=== PATIENT | male | born 1980 | race African-American/Black ===

== ENCOUNTER 2019-11-07 18:34 | Emergency (ER) | payer MEDICAID ==
[~2019-11-07] VITALS: Ht 180.3 cm; Wt 81.0 kg
[2019-11-07] MEDS ORDERED: HALOPERIDOL LACTATE 5MG/ML VIAL IM STA (18:53)
[2019-11-07] MEDS ORDERED: DIPHENHYDRAMINE 50MG/ML VIAL IM STA (18:53)
[2019-11-07] MEDS ORDERED: LORAZEPAM 2MG/ML CPJ IM STA (18:53)
[2019-11-07] MEDS ORDERED: SODIUM CHLORIDE 0.9% 1,000 ML IV ONE (18:59)
[2019-11-07 19:55] LABS: HEMATOCRIT. 36.4 % (42.0-52.0); HEMOGLOBIN. 12.2 g/dL (14.0-18.0); MEAN CORPUSCULAR VOLUME 83.4 fL (80.0-94.0); MEAN PLATELET VOLUME 7.6 fl (7.4-10.4); PLATELET 213 x1000/uL (130-400); RED BLOOD CELL COUNT 4.37 mill/uL (4.7-6.1)
[2019-11-07 20:00] LABS: CHLORIDE 107 mEq/L (98-107)
[2019-11-07 20:06] LABS: ETHANOL BLOOD < 10 mg/dL
[2019-11-07 20:23] LABS: PLATELET ESTIMATE NORMAL
[2019-11-08 07:09] LABS: CLARITY URINE CLEAR (CLEAR); COLOR URINE YELLOW (YELLOW); KETONES URINE 1+ (NEGATIVE); LEUKOCYTE ESTERASE URINE NEGATIVE (NEGATIVE); NITRITE URINE NEGATIVE (NEGATIVE); OCCULT BLOOD URINE NEGATIVE (NEGATIVE); PH URINE 5.5 (4.5-8.0); PROTEIN URINE NEGATIVE (NEGATIVE); SPECIFIC GRAVITY URINE 1.023 (1.005-1.030)
[2019-11-08 07:19] LABS: *AMPHETAMINES SCREEN URINE PRESUMTIVE POSITIVE (NEGATIVE); *BARBITURATES SCREEN URINE NEGATIVE (NEGATIVE); *BENZODIAZEPINES SCREEN URINE NEGATIVE (NEGATIVE); *COCAINE SCREEN URINE NEGATIVE (NEGATIVE)
[2019-11-08 07:20] LABS: CANNABINOID URINE SCREEN PRESUMTIVE POSITIVE (NEGATIVE); METHADONE URINE SCREEN NEGATIVE (NEGATIVE); OPIATES URINE SCREEN NEGATIVE (NEGATIVE); PHENCYCLIDINE URINE SCREEN NEGATIVE (NEGATIVE)
[2019-11-08 09:30] VITALS: BP 122/68
== END 2019-11-08 09:38 | disposition home or self-care (01) ==
LOC: ER 18:34
DX: R45.850 Homicidal ideations (principal); R07.89 Other chest pain; F16.10 Hallucinogen abuse, uncomplicated; Z98.890 Other specified postprocedural states
CPT/HCPCS: 36415; 71045; 80053; 80305; 80320; 81003; 83880; 84484; 85025; 96360; 96372; 99285; J1200; J1630; J7030; J2060; G0480

== ENCOUNTER 2021-02-03 14:20 | Emergency (ER) | payer MEDICAID ==
[~2021-02-03] VITALS: Ht 177.8 cm; Wt 78.0 kg
[2021-02-03] MEDS ORDERED: LORAZEPAM 2MG/ML CPJ IV STA (15:28)
[2021-02-03] MEDS ORDERED: SODIUM CHLORIDE 0.9% 1,000 ML IV ONE (15:30)
[2021-02-03] MEDS ORDERED: DIPHENHYDRAMINE 50MG/ML VIAL IM STA (16:03)
[2021-02-03] MEDS ORDERED: HALOPERIDOL LACTATE 5MG/ML VIAL IM STA (16:03)
[2021-02-03 18:12] LABS: BASOPHILS % 0.1 % (0.0-2.0); HEMATOCRIT. 38.3 % (42.0-52.0); HEMOGLOBIN. 12.8 g/dL (14.0-18.0); LYMPHOCYTES % 8.3 % (20.0-50.0); MEAN CORPUSCULAR HEMOGLOBIN 27.1 pg (28.0-32.0); MEAN PLATELET VOLUME 7.4 fl (7.4-10.4); MONOCYTES % 9.1 % (2.0-8.0); NEUTROPHILS % 82.5 % (40.0-76.0); PLATELET 274 x1000/uL (130-400); RED BLOOD CELL COUNT 4.73 mill/uL (4.7-6.1); RED CELL DISTRIBUTION WIDTH 15.8 % (11.6-14.6)
[2021-02-03 18:19] LABS: CHLORIDE 106 mEq/L (98-107)
[2021-02-03 18:23] LABS: ETHANOL BLOOD < 10 mg/dL
[2021-02-04 02:04] VITALS: BP 140/92
== END 2021-02-04 02:04 | disposition home or self-care (01) ==
LOC: ER 14:20
DX: R20.2 Paresthesia of skin (principal); M79.661 Pain in right lower leg; F20.9 Schizophrenia, unspecified; R45.1 Restlessness and agitation; Z78.1 Physical restraint status
CPT/HCPCS: 36415; 70450; 80053; 80320; 85025; 93005; 93971; 96361; 96372; 96374; 99285; J1200; J1630; J2060; J7030; Z7610; G0480

== ENCOUNTER 2021-04-12 17:13 | Emergency (ER) | payer MEDICAID ==
[~2021-04-12] VITALS: Ht 177.8 cm; Wt 100.0 kg
[2021-04-12] MEDS ORDERED: DIPHENHYDRAMINE 50MG CAPSULE PO STA (17:33)
[2021-04-12] MEDS ORDERED: SODIUM CHLORIDE 0.9% 1,000 ML IV ONE (17:45)
[2021-04-12 18:15] LABS: BASOPHILS % 0.4 % (0.0-2.0); EOSINOPHILS % 0.1 % (0.0-5.0); HEMATOCRIT. 38.9 % (42.0-52.0); HEMOGLOBIN. 12.7 g/dL (14.0-18.0); MEAN CORPUSCULAR HEMOGLOBIN 26.3 pg (28.0-32.0); MEAN CORPUSCULAR VOLUME 80.8 fL (80.0-94.0); MEAN PLATELET VOLUME 7.5 fl (7.4-10.4); NEUTROPHILS % 79.5 % (40.0-76.0); PLATELET 265 x1000/uL (130-400); RED BLOOD CELL COUNT 4.82 mill/uL (4.7-6.1); RED CELL DISTRIBUTION WIDTH 17.3 % (11.6-14.6)
[2021-04-12 18:22] LABS: CHLORIDE 105 mEq/L (98-107)
[2021-04-12 18:28] LABS: ETHANOL BLOOD < 10 mg/dL
[2021-04-12] MEDS ORDERED: SODIUM CHLORIDE 0.9% 1,000 ML IV NR (20:00)
[2021-04-12 20:52] LABS: CLARITY URINE CLEAR (CLEAR); COLOR URINE YELLOW (YELLOW); KETONES URINE TRACE (NEGATIVE); LEUKOCYTE ESTERASE URINE NEGATIVE (NEGATIVE); NITRITE URINE NEGATIVE (NEGATIVE); OCCULT BLOOD URINE NEGATIVE (NEGATIVE); PH URINE 5.5 (4.5-8.0); PROTEIN URINE TRACE (NEGATIVE); SPECIFIC GRAVITY URINE 1.024 (1.005-1.030); UROBILINOGEN URINE 0.2 E.U./dL (0.2-1.0)
[2021-04-12 21:15] LABS: *AMPHETAMINES SCREEN URINE PRESUMTIVE POSITIVE (NEGATIVE); *BARBITURATES SCREEN URINE NEGATIVE (NEGATIVE)
[2021-04-12] MEDS ORDERED: ACETAMINOPHEN 325MG TABLET PO ONE (21:15)
[2021-04-12 21:16] LABS: *BENZODIAZEPINES SCREEN URINE PRESUMTIVE POSITIVE (NEGATIVE); *COCAINE SCREEN URINE NEGATIVE (NEGATIVE); CANNABINOID URINE SCREEN PRESUMTIVE POSITIVE (NEGATIVE); METHADONE URINE SCREEN NEGATIVE (NEGATIVE); OPIATES URINE SCREEN NEGATIVE (NEGATIVE); PHENCYCLIDINE URINE SCREEN NEGATIVE (NEGATIVE)
[2021-04-12] MEDS ORDERED: MORPHINE SULFATE 4 MG/ML CPJ (NOT FOR IM USE) IV ONE (21:30)
[2021-04-12] MEDS ORDERED: HALOPERIDOL LACTATE 5MG/ML VIAL IM ONE (21:30)
[2021-04-12] MEDS ORDERED: MIDAZOLAM HCL 2 MG/2 ML VIAL IV ONE (21:30)
[2021-04-13 08:00] VITALS: BP 128/82
== END 2021-04-13 08:06 | disposition home or self-care (01) ==
LOC: ER 17:13
DX: F16.10 Hallucinogen abuse, uncomplicated (principal); F15.10 Other stimulant abuse, uncomplicated; F12.10 Cannabis abuse, uncomplicated; F13.90 Sedative, hypnotic, or anxiolytic use, unspecified, uncomplicated; R00.0 Tachycardia, unspecified; F33.9 Major depressive disorder, recurrent, unspecified; Z88.8 Allergy status to other drugs, medicaments and biological substances
CPT/HCPCS: 36415; 70450; 71045; 73552; 80053; 80305; 80307; 80320; 80329; 81003; 84484; 85025; 93005; 93971; 96361; 96372; 96374; 96375; 99291; J1630; J2250; J2270; J7030; Q0163; G0480

== ENCOUNTER 2021-05-06 11:06 | Inpatient (IN) | payer MEDICAID ==
[~2021-05-06] VITALS: Ht 177.8 cm; Wt 79.4 kg
[2021-05-06] MEDS ORDERED: MORPHINE SULFATE 4 MG/ML CPJ (NOT FOR IM USE) IV STA (11:10)
[2021-05-06] MEDS ORDERED: ACETAMINOPHEN 325MG TABLET PO STA (11:10)
[2021-05-06] MEDS ORDERED: SODIUM CHLORIDE 0.9% 1,000 ML IV ONE (11:15)
[2021-05-06] MEDS ORDERED: DIPHENHYDRAMINE 50MG/ML VIAL IV ONE (11:15)
[2021-05-06] MEDS ORDERED: METOCLOPRAMIDE HCL 10MG/2ML VIAL IV ONE (11:15)
[2021-05-06] MEDS ORDERED: OLANZAPINE 10 MG/VIAL IM ONE ×2 (13:30→19:15)
[2021-05-06 15:30] LABS: BASOPHILS % 0.2 % (0.0-2.0); HEMATOCRIT. 39.5 % (42.0-52.0); HEMOGLOBIN. 12.6 g/dL (14.0-18.0); LYMPHOCYTES % 16.1 % (20.0-50.0); MEAN CORPUSCULAR HEMOGLOBIN 26.2 pg (28.0-32.0); MEAN CORPUSCULAR VOLUME 82.3 fL (80.0-94.0); MEAN PLATELET VOLUME 8.2 fl (7.4-10.4); NEUTROPHILS % 75.7 % (40.0-76.0); PLATELET 375 x1000/uL (130-400); RED CELL DISTRIBUTION WIDTH 18.1 % (11.6-14.6)
[2021-05-06 15:37] LABS: CHLORIDE 103 mEq/L (98-107)
[2021-05-06 15:42] LABS: ETHANOL BLOOD < 10 mg/dL
[2021-05-06 15:45] LABS: CLARITY URINE CLOUDY (CLEAR); COLOR URINE YELLOW (YELLOW); KETONES URINE TRACE (NEGATIVE); LEUKOCYTE ESTERASE URINE NEGATIVE (NEGATIVE); NITRITE URINE NEGATIVE (NEGATIVE); OCCULT BLOOD URINE 1+ (NEGATIVE); PH URINE 5.5 (4.5-8.0); PROTEIN URINE 2+ (NEGATIVE); SPECIFIC GRAVITY URINE 1.029 (1.005-1.030)
[2021-05-06 15:46] LABS: CREATINE KINASE 490 IU/L (39-308)
[2021-05-06 15:56] LABS: *AMPHETAMINES SCREEN URINE PRESUMTIVE POSITIVE (NEGATIVE); CANNABINOID URINE SCREEN PRESUMTIVE POSITIVE (NEGATIVE); OPIATES URINE SCREEN NEGATIVE (NEGATIVE); PHENCYCLIDINE URINE SCREEN NEGATIVE (NEGATIVE)
[2021-05-06 15:57] LABS: *BENZODIAZEPINES SCREEN URINE NEGATIVE (NEGATIVE); *COCAINE SCREEN URINE NEGATIVE (NEGATIVE)
[2021-05-06] MEDS ORDERED: SODIUM CHLORIDE 0.9% 1,000 ML IV NR (18:00)
[2021-05-06] MEDS ORDERED: ASPIRIN 325MG EC TABLET PO ONE (19:15)
[2021-05-06] MEDS ORDERED: DIPHENHYDRAMINE 25MG CAPSULE PO ONE (19:15)
[2021-05-06] MEDS ORDERED: MORPHINE SULFATE 4 MG/ML CPJ (NOT FOR IM USE) IV ONE (19:15)
[2021-05-06] MEDS ORDERED: KETOROLAC 15MG/ML VIAL IV PRN (19:45)
[2021-05-06] MEDS ORDERED: ACETAMINOPHEN 325MG TABLET PO PRN (19:45)
[2021-05-06] MEDS ORDERED: MAGNESIUM/ALUMINUM HYDROXIDE/SIMETHICONE 30ML UDC PO PRN (19:45)
[2021-05-06] MEDS ORDERED: DOCUSATE SODIUM 100MG CAPSULE PO PRN (19:45)
[2021-05-06] MEDS ORDERED: CLONIDINE 0.1MG TABLET PO PRN (19:45)
[2021-05-06] MEDS ORDERED: GUAIFENESIN 200MG/10ML SUGAR FREE UDC PO PRN (19:45)
[2021-05-06] MEDS ORDERED: NITROGLYCERIN 0.4MG TABLET SL SL PRN (19:45)
[2021-05-06] MEDS ORDERED: ZOLPIDEM TARTRATE 5MG TABLET PO PRN (19:45)
[2021-05-06] MEDS ORDERED: IPRATROPIUM/ALBUTEROL 0.5-3(2.5)MG/3ML NEB NEB PRN (19:45)
[2021-05-06] MEDS ORDERED: ONDANSETRON HCL 4MG/2ML INJ IV PRN (19:45)
[2021-05-06 21:03] LABS: FOLIC ACID (FOLATE) SERUM > 20.00 ng/mL (>5.38)
[2021-05-06 21:40] LABS: VITAMIN B12 SERUM 1462 pg/mL (211-911)
[2021-05-06] MEDS: FAMOTIDINE 20MG TABLET PO SCH (23:38)
[2021-05-06] MEDS: ENOXAPARIN 40MG/0.4ML SYR SUBCUT SCH (23:38)
[2021-05-07 00:31] LABS: CREATINE KINASE MB FRACTION 44.4 ng/mL (0.5-3.6)
[2021-05-07 02:30] VITALS: BP 141/103
[2021-05-07 04:00] VITALS: BP 159/81
[2021-05-07] MEDS: DILTIAZEM HCL 60MG TABLET PO SCH ×5 (04:10→23:09)
[2021-05-07 06:54] LABS: BASOPHILS % 0.3 % (0.0-2.0); HEMATOCRIT. 37.3 % (42.0-52.0); HEMOGLOBIN. 12.4 g/dL (14.0-18.0); LYMPHOCYTES % 19.2 % (20.0-50.0); MEAN CORPUSCULAR HEMOGLOBIN 26.2 pg (28.0-32.0); MEAN CORPUSCULAR VOLUME 79.3 fL (80.0-94.0); MEAN PLATELET VOLUME 7.6 fl (7.4-10.4); MONOCYTES % 11.6 % (2.0-8.0); NEUTROPHILS % 68.9 % (40.0-76.0); PLATELET 287 x1000/uL (130-400); RED BLOOD CELL COUNT 4.71 mill/uL (4.7-6.1); RED CELL DISTRIBUTION WIDTH 18.4 % (11.6-14.6)
[2021-05-07 07:02] LABS: CHLORIDE 106 mEq/L (98-107)
[2021-05-07 07:18] LABS: PHOSPHORUS 3.7 mg/dL (2.5-4.9)
[2021-05-07 07:22] LABS: CREATINE KINASE MB FRACTION 44.1 ng/mL (0.5-3.6)
[2021-05-07 07:33] LABS: CREATINE KINASE 5269 IU/L (39-308)
[2021-05-07 08:00] VITALS: BP 134/79
[2021-05-07] MEDS: FAMOTIDINE 20MG TABLET PO SCH ×2 (09:18→20:01)
[2021-05-07] MEDS: ASPIRIN 325MG EC TABLET PO SCH (09:18)
[2021-05-07 12:00] VITALS: BP 131/75
[2021-05-07] MEDS: ACETAMINOPHEN 325MG TABLET PO PRN ×2 (15:47→20:01)
[2021-05-07 16:00] VITALS: BP 141/80
[2021-05-07 18:09] LABS: *BARBITURATES SCREEN URINE NEGATIVE (NEGATIVE); METHADONE URINE SCREEN NEGATIVE (NEGATIVE)
[2021-05-07 20:00] VITALS: BP 138/80
[2021-05-07] MEDS: ENOXAPARIN 40MG/0.4ML SYR SUBCUT SCH (20:01)
[2021-05-07] MEDS: LORAZEPAM 0.5MG TABLET PO PRN ×2 (20:21→21:28)
[2021-05-08 00:56] VITALS: BP 124/82
[2021-05-08 04:00] VITALS: BP 133/89
[2021-05-08] MEDS: DILTIAZEM HCL 60MG TABLET PO SCH (05:01)
[2021-05-08 08:00] VITALS: BP 146/99
[2021-05-08] MEDS: ASPIRIN 325MG EC TABLET PO SCH (09:37)
[2021-05-08] MEDS: FAMOTIDINE 20MG TABLET PO SCH (09:37)
[2021-05-08 10:58] VITALS: BP 143/92
== END 2021-05-08 11:52 | disposition home or self-care (01) | DRG 812 ==
LOC: ER 11:06 → 7EST 19:25 → ENRESERV 23:17 → 5WST 05-07 08:35
PROVIDERS: ADMIT Internal Medicine; ATTEND Internal Medicine
DX: T43.621A Poisoning by amphetamines, accidental (unintentional), initial encounter (principal); N17.0 Acute kidney failure with tubular necrosis; I21.4 Non-ST elevation (NSTEMI) myocardial infarction; M62.82 Rhabdomyolysis; I47.1 Supraventricular tachycardia; F15.10 Other stimulant abuse, uncomplicated; F17.210 Nicotine dependence, cigarettes, uncomplicated; Z20.822 Contact with and (suspected) exposure to COVID-19; F41.9 Anxiety disorder, unspecified; I10 Essential (primary) hypertension; J45.909 Unspecified asthma, uncomplicated; Z82.49 Family history of ischemic heart disease and other diseases of the circulatory system; Y92.89 Other specified places as the place of occurrence of the external cause; Z56.0 Unemployment, unspecified; F19.10 Other psychoactive substance abuse, uncomplicated
CPT/HCPCS: 36415; 71045; 71275; 80053; 80061; 80305; 80307; 80320; 80329; 81003; 82550; 82553; 82607; 82746; 82962; 83036; 83540; 83550; 83735; 83880; 84100; 84484; 85025; 93970; 99291; J1200; J1650; J1885; J2270; J2765; J3490; J7030; Q0163; Q9967; U0003; U0005; G0480

== ENCOUNTER 2021-05-09 12:48 | Emergency (ER) | payer MEDICAID ==
[~2021-05-09] VITALS: Ht 177.8 cm; Wt 80.0 kg
[2021-05-09 14:15] LABS: HEMATOCRIT. 35.9 % (42.0-52.0); HEMOGLOBIN. 11.7 g/dL (14.0-18.0); MEAN CORPUSCULAR HEMOGLOBIN 26.1 pg (28.0-32.0); MEAN CORPUSCULAR VOLUME 80.2 fL (80.0-94.0); MEAN PLATELET VOLUME 7.4 fl (7.4-10.4); PLATELET 226 x1000/uL (130-400); RED BLOOD CELL COUNT 4.48 mill/uL (4.7-6.1); RED CELL DISTRIBUTION WIDTH 18.8 % (11.6-14.6)
[2021-05-09 14:20] LABS: CHLORIDE 100 mEq/L (98-107)
[2021-05-09 14:24] LABS: ETHANOL BLOOD < 10 mg/dL
[2021-05-09] MEDS ORDERED: DIPHENHYDRAMINE 50MG/ML VIAL IV ONE ×2 (14:30→15:45)
[2021-05-09] MEDS ORDERED: OLANZAPINE 10 MG/VIAL IM ONE (15:45)
[2021-05-09] MEDS ORDERED: SODIUM CHLORIDE 0.9% 1,000 ML IV ONE ×2 (16:00→18:45)
[2021-05-09] MEDS ORDERED: LORAZEPAM 1MG TABLET PO ONE (16:00)
[2021-05-09 17:20] LABS: PLATELET ESTIMATE NORMAL
[2021-05-10 09:16] VITALS: BP 110/64
[2021-05-11] MEDS ORDERED: IBUP-2028 MT (17:40)
== END 2021-05-10 10:03 | disposition home or self-care (01) ==
LOC: ER 12:51
DX: F29 Unspecified psychosis not due to a substance or known physiological condition (principal); R07.89 Other chest pain; R00.2 Palpitations; J45.909 Unspecified asthma, uncomplicated; I10 Essential (primary) hypertension; F15.10 Other stimulant abuse, uncomplicated
CPT/HCPCS: 36415; 71045; 80053; 80320; 83690; 83880; 84484; 85025; 93005; 96361; 96372; 96374; 96376; 99285; A4217; J1200; J3490; J7030; G0480

== ENCOUNTER 2021-05-11 11:58 | Emergency (ER) | payer MEDICAID ==
[~2021-05-11] VITALS: Ht 177.8 cm; Wt 79.0 kg
[2021-05-11] MEDS ORDERED: KETOROLAC 30MG/ML VIAL IV STA (12:25)
[2021-05-11] MEDS ORDERED: SODIUM CHLORIDE 0.9% 1,000 ML IV ONE (12:30)
[2021-05-11] MEDS ORDERED: DIPHENHYDRAMINE 25MG CAPSULE PO ONE (12:30)
[2021-05-11 12:50] LABS: HEMATOCRIT. 30.6 % (42.0-52.0); HEMOGLOBIN. 10.7 g/dL (14.0-18.0); MEAN CORPUSCULAR HEMOGLOBIN 27.7 pg (28.0-32.0); MEAN CORPUSCULAR VOLUME 79.2 fL (80.0-94.0); MEAN PLATELET VOLUME 7.3 fl (7.4-10.4); PLATELET 201 x1000/uL (130-400); RED BLOOD CELL COUNT 3.87 mill/uL (4.7-6.1); RED CELL DISTRIBUTION WIDTH 18.9 % (11.6-14.6)
[2021-05-11 13:03] LABS: CHLORIDE 103 mEq/L (98-107)
[2021-05-11 13:54] LABS: PLATELET ESTIMATE NORMAL
[2021-05-11] MEDS ORDERED: ACETAMINOPHEN 325MG TABLET PO NR (14:15)
[2021-05-11] MEDS ORDERED: IBUP-2028 MT (17:40)
[2021-05-11 18:02] VITALS: BP 121/74
== END 2021-05-11 18:40 | disposition home or self-care (01) ==
LOC: ER 11:58
DX: R07.89 Other chest pain (principal); I10 Essential (primary) hypertension; Z88.8 Allergy status to other drugs, medicaments and biological substances; Z98.890 Other specified postprocedural states
CPT/HCPCS: 36415; 71045; 80053; 84484; 85025; 93005; 93970; 96361; 96374; 99285; J1885; J7030; Q0163

== ENCOUNTER 2021-06-07 20:06 | Emergency (ER) | payer MEDICAID ==
[~2021-06-07] VITALS: Ht 182.9 cm; Wt 80.0 kg
[~2021-06-07 20:06] MED LIST: IBUP-2028 MT
[2021-06-07 20:33] VITALS: BP 124/76
[2021-06-07] MEDS ORDERED: LORAZEPAM 1MG TABLET PO ONE (21:45)
[2021-06-07] MEDS ORDERED: OLANZAPINE 5MG TABLET ODT PO ONE (22:00)
[2021-06-07] MEDS ORDERED: DIPHENHYDRAMINE 50MG/ML VIAL IM PRN (22:00)
[2021-06-07 23:12] LABS: *AMPHETAMINES SCREEN URINE PRESUMTIVE POSITIVE (NEGATIVE); *BARBITURATES SCREEN URINE NEGATIVE (NEGATIVE); *BENZODIAZEPINES SCREEN URINE PRESUMTIVE POSITIVE (NEGATIVE); *COCAINE SCREEN URINE NEGATIVE (NEGATIVE); METHADONE URINE SCREEN NEGATIVE (NEGATIVE); OPIATES URINE SCREEN NEGATIVE (NEGATIVE)
[2021-06-07 23:13] LABS: CANNABINOID URINE SCREEN NEGATIVE (NEGATIVE); PHENCYCLIDINE URINE SCREEN NEGATIVE (NEGATIVE)
== END 2021-06-07 23:38 | disposition home or self-care (01) ==
LOC: ER 20:06
DX: F41.8 Other specified anxiety disorders (principal); R07.89 Other chest pain; R00.0 Tachycardia, unspecified; F15.10 Other stimulant abuse, uncomplicated; F16.10 Hallucinogen abuse, uncomplicated; I10 Essential (primary) hypertension; J45.909 Unspecified asthma, uncomplicated
CPT/HCPCS: 80305; 93005; 96372; 99284; J1200; Z7610

== ENCOUNTER 2021-06-09 13:25 | Emergency (ER) | payer MEDICAID ==
[~2021-06-09] VITALS: Ht 177.8 cm; Wt 80.0 kg
[2021-06-09 13:29] VITALS: BP 136/88
== END 2021-06-09 14:34 | disposition left against medical advice (07) ==
LOC: ER 13:25
DX: Z53.21 Procedure and treatment not carried out due to patient leaving prior to being seen by health care provider (principal); R07.9 Chest pain, unspecified; R00.0 Tachycardia, unspecified
CPT/HCPCS: 93005

== ENCOUNTER 2021-06-09 18:51 | Emergency (ER) | payer MEDICAID ==
[~2021-06-09] VITALS: Ht 175.3 cm; Wt 77.0 kg
[2021-06-09] MEDS ORDERED: OLANZAPINE 10 MG/VIAL IM ONE (19:15)
[2021-06-09] MEDS ORDERED: LORAZEPAM 2MG/ML CPJ IM ONE (19:15)
[2021-06-09 20:42] LABS: BASOPHILS % 0.6 % (0.0-2.0); EOSINOPHILS % 0.1 % (0.0-5.0); HEMATOCRIT. 38.7 % (42.0-52.0); LYMPHOCYTES % 17.6 % (20.0-50.0); MEAN CORPUSCULAR HEMOGLOBIN 26.5 pg (28.0-32.0); MEAN CORPUSCULAR VOLUME 78.8 fL (80.0-94.0); MEAN PLATELET VOLUME 7.2 fl (7.4-10.4); MONOCYTES % 9.9 % (2.0-8.0); NEUTROPHILS % 71.8 % (40.0-76.0); PLATELET 203 x1000/uL (130-400); RED CELL DISTRIBUTION WIDTH 19.1 % (11.6-14.6)
[2021-06-09 20:47] LABS: CHLORIDE 105 mEq/L (98-107)
[2021-06-09 20:52] LABS: ETHANOL BLOOD < 10 mg/dL
[2021-06-09 21:42] LABS: CLARITY URINE CLEAR (CLEAR); COLOR URINE YELLOW (YELLOW); KETONES URINE 1+ (NEGATIVE); LEUKOCYTE ESTERASE URINE NEGATIVE (NEGATIVE); NITRITE URINE NEGATIVE (NEGATIVE); OCCULT BLOOD URINE NEGATIVE (NEGATIVE); PH URINE 5.5 (4.5-8.0); PROTEIN URINE 1+ (NEGATIVE); SPECIFIC GRAVITY URINE 1.033 (1.005-1.030)
[2021-06-09 22:11] LABS: *AMPHETAMINES SCREEN URINE PRESUMTIVE POSITIVE (NEGATIVE); *BARBITURATES SCREEN URINE NEGATIVE (NEGATIVE); *BENZODIAZEPINES SCREEN URINE PRESUMTIVE POSITIVE (NEGATIVE)
[2021-06-09 22:12] LABS: *COCAINE SCREEN URINE NEGATIVE (NEGATIVE); CANNABINOID URINE SCREEN NEGATIVE (NEGATIVE); METHADONE URINE SCREEN NEGATIVE (NEGATIVE); OPIATES URINE SCREEN NEGATIVE (NEGATIVE); PHENCYCLIDINE URINE SCREEN NEGATIVE (NEGATIVE)
[2021-06-10 10:55] VITALS: BP 131/89
== END 2021-06-10 11:14 | disposition home or self-care (01) ==
LOC: ER 18:51
DX: F15.129 Other stimulant abuse with intoxication, unspecified (principal); F16.129 Hallucinogen abuse with intoxication, unspecified; R45.6 Violent behavior; F13.10 Sedative, hypnotic or anxiolytic abuse, uncomplicated; F14.10 Cocaine abuse, uncomplicated; D64.9 Anemia, unspecified; D72.819 Decreased white blood cell count, unspecified; R03.0 Elevated blood-pressure reading, without diagnosis of hypertension; R73.9 Hyperglycemia, unspecified
CPT/HCPCS: 36415; 80053; 80305; 80307; 80320; 80329; 81003; 85025; 96372; 99285; J2060; J3490; Z7610; G0480

== ENCOUNTER 2021-10-19 06:45 | Emergency (ER) | payer MEDICAID ==
[~2021-10-19] VITALS: Ht 177.8 cm; Wt 67.4 kg
[2021-10-19 06:58] VITALS: BP 139/89
[2021-10-19 09:45] LABS: BASOPHILS % 0.8 % (0.0-2.0); EOSINOPHILS % 0.2 % (0.0-5.0); HEMATOCRIT. 37.1 % (42.0-52.0); HEMOGLOBIN. 12.1 g/dL (14.0-18.0); LYMPHOCYTES % 23.3 % (20.0-50.0); MEAN CORPUSCULAR HEMOGLOBIN 26.2 pg (28.0-32.0); MEAN CORPUSCULAR VOLUME 80.2 fL (80.0-94.0); MEAN PLATELET VOLUME 6.7 fl (7.4-10.4); MONOCYTES % 14.1 % (2.0-8.0); NEUTROPHILS % 61.6 % (40.0-76.0); PLATELET 300 x1000/uL (130-400); RED BLOOD CELL COUNT 4.62 mill/uL (4.7-6.1)
[2021-10-19 09:55] LABS: CHLORIDE 103 mEq/L (98-107)
[2021-10-19 10:00] LABS: ETHANOL BLOOD < 10 mg/dL
== END 2021-10-19 14:46 | disposition home or self-care (01) ==
LOC: ER 06:45
DX: Z13.9 Encounter for screening, unspecified (principal)
CPT/HCPCS: 36415; 80053; 80307; 80320; 80329; 85025; 99283; G0480

== ENCOUNTER 2021-11-22 19:21 | Emergency (ER) | payer MEDICAID ==
[~2021-11-22] VITALS: Ht 180.3 cm; Wt 95.0 kg
[2021-11-22 21:23] LABS: HEMATOCRIT. 37.1 % (42.0-52.0); HEMOGLOBIN. 11.9 g/dL (14.0-18.0); MEAN CORPUSCULAR HEMOGLOBIN 25.8 pg (28.0-32.0); MEAN CORPUSCULAR VOLUME 80.5 fL (80.0-94.0); MEAN PLATELET VOLUME 7.1 fl (7.4-10.4); PLATELET 271 x1000/uL (130-400)
[2021-11-22] MEDS ORDERED: MIDAZOLAM HCL 2 MG/2 ML VIAL IM ONE (21:30)
[2021-11-22] MEDS ORDERED: OLANZAPINE 10 MG/VIAL IM ONE (21:30)
[2021-11-22] MEDS ORDERED: DIPHENHYDRAMINE 50MG/ML VIAL IM ONE (21:30)
[2021-11-22 21:33] LABS: CHLORIDE 112 mEq/L (98-107)
[2021-11-22 21:40] LABS: ETHANOL BLOOD < 10 mg/dL
[2021-11-22 22:15] LABS: PLATELET ESTIMATE NORMAL
[2021-11-23] MEDS ORDERED: OLANZAPINE 10 MG/VIAL IM ONE (01:15)
[2021-11-23] MEDS ORDERED: MIDAZOLAM HCL 2 MG/2 ML VIAL IM ONE (01:15)
[2021-11-23 01:20] VITALS: BP 138/74
== END 2021-11-22 20:52 | disposition home or self-care (01) ==
LOC: ER 19:21
DX: R45.1 Restlessness and agitation (principal); R07.89 Other chest pain; F41.9 Anxiety disorder, unspecified; F15.90 Other stimulant use, unspecified, uncomplicated; F91.8 Other conduct disorders
CPT/HCPCS: 36415; 80053; 80320; 83880; 84484; 85025; 96372; 99284; J1200; J2250; J3490; G0480

== ENCOUNTER 2021-11-24 06:11 | Emergency (ER) | payer MEDICAID ==
[~2021-11-24] VITALS: Ht 177.8 cm; Wt 77.0 kg
[2021-11-24 09:18] LABS: BASOPHILS % 0.3 % (0.0-2.0); HEMATOCRIT. 36.8 % (42.0-52.0); HEMOGLOBIN. 11.7 g/dL (14.0-18.0); LYMPHOCYTES % 7.8 % (20.0-50.0); MEAN CORPUSCULAR HEMOGLOBIN 25.4 pg (28.0-32.0); MEAN CORPUSCULAR VOLUME 80.1 fL (80.0-94.0); MEAN PLATELET VOLUME 7.1 fl (7.4-10.4); MONOCYTES % 7.6 % (2.0-8.0); NEUTROPHILS % 84.3 % (40.0-76.0); PLATELET 285 x1000/uL (130-400); RED CELL DISTRIBUTION WIDTH 17.2 % (11.6-14.6)
[2021-11-24 09:33] LABS: CHLORIDE 110 mEq/L (98-107)
[2021-11-24] MEDS ORDERED: LORAZEPAM 2MG/ML CPJ IM ONE (11:15)
[2021-11-24] MEDS ORDERED: DIPHENHYDRAMINE 50MG/ML VIAL IM ONE (11:15)
[2021-11-24 14:30] VITALS: BP 118/69
== END 2021-11-24 17:30 | disposition home or self-care (01) ==
LOC: ER 06:17
DX: T43.621A Poisoning by amphetamines, accidental (unintentional), initial encounter (principal); F15.929 Other stimulant use, unspecified with intoxication, unspecified; R00.0 Tachycardia, unspecified; R07.89 Other chest pain; Y92.89 Other specified places as the place of occurrence of the external cause
CPT/HCPCS: 36415; 71045; 80053; 83880; 84484; 85025; 93005; 96372; 99285; J1200; J2060

== ENCOUNTER 2021-12-07 14:27 | Emergency (ER) | payer MEDICAID ==
[~2021-12-07] VITALS: Ht 177.8 cm; Wt 82.0 kg
[2021-12-07 15:00] VITALS: BP 132/69
[2021-12-07] MEDS ORDERED: DIPHENHYDRAMINE 50MG CAPSULE PO ONE (15:00)
== END 2021-12-07 16:10 | disposition home or self-care (01) ==
LOC: ER 14:27
DX: R07.89 Other chest pain (principal); F15.10 Other stimulant abuse, uncomplicated; Z88.8 Allergy status to other drugs, medicaments and biological substances; Z98.890 Other specified postprocedural states
CPT/HCPCS: 71045; 93005; 99283; Q0163

== ENCOUNTER 2021-12-07 16:51 | Emergency (ER) | payer MEDICAID ==
[~2021-12-07] VITALS: Ht 182.9 cm; Wt 92.0 kg
[2021-12-07] MEDS ORDERED: DIPHENHYDRAMINE 50MG/ML VIAL IV ONE (17:30)
[2021-12-07] MEDS ORDERED: MIDAZOLAM HCL 2 MG/2 ML VIAL IV ONE (17:30)
[2021-12-07] MEDS ORDERED: SODIUM CHLORIDE 0.9% 1,000 ML IV ONE (17:30)
[2021-12-07 17:36] LABS: BASOPHILS % 0.7 % (0.0-2.0); EOSINOPHILS % 0.2 % (0.0-5.0); HEMATOCRIT. 34.4 % (42.0-52.0); HEMOGLOBIN. 11.4 g/dL (14.0-18.0); LYMPHOCYTES % 22.8 % (20.0-50.0); MEAN CORPUSCULAR HEMOGLOBIN 26.3 pg (28.0-32.0); MEAN CORPUSCULAR VOLUME 79.2 fL (80.0-94.0); MEAN PLATELET VOLUME 7.6 fl (7.4-10.4); MONOCYTES % 8.1 % (2.0-8.0); NEUTROPHILS % 68.2 % (40.0-76.0); PLATELET 240 x1000/uL (130-400); RED BLOOD CELL COUNT 4.35 mill/uL (4.7-6.1); RED CELL DISTRIBUTION WIDTH 17.8 % (11.6-14.6)
[2021-12-07 17:39] LABS: CHLORIDE 107 mEq/L (98-107)
[2021-12-07 17:54] LABS: ETHANOL BLOOD < 10 mg/dL
[2021-12-07 18:08] VITALS: BP 152/77
== END 2021-12-07 20:44 | disposition home or self-care (01) ==
LOC: ER 16:51
DX: F15.90 Other stimulant use, unspecified, uncomplicated (principal); Z98.890 Other specified postprocedural states; Z88.8 Allergy status to other drugs, medicaments and biological substances
CPT/HCPCS: 36415; 80053; 80307; 80320; 80329; 84443; 85025; 96374; 96375; 99284; J1200; J2250; J7030; G0480

== ENCOUNTER 2021-12-07 21:15 | Emergency (ER) | payer MEDICAID ==
[~2021-12-07] VITALS: Ht 177.8 cm; Wt 82.0 kg
[2021-12-08 07:04] LABS: BASOPHILS % 0.6 % (0.0-2.0); EOSINOPHILS % 0.2 % (0.0-5.0); HEMOGLOBIN. 11.6 g/dL (14.0-18.0); LYMPHOCYTES % 20.6 % (20.0-50.0); MEAN CORPUSCULAR HEMOGLOBIN 25.8 pg (28.0-32.0); MEAN CORPUSCULAR VOLUME 80.3 fL (80.0-94.0); MEAN PLATELET VOLUME 7.3 fl (7.4-10.4); MONOCYTES % 9.1 % (2.0-8.0); NEUTROPHILS % 69.5 % (40.0-76.0); PLATELET 271 x1000/uL (130-400); RED BLOOD CELL COUNT 4.49 mill/uL (4.7-6.1); RED CELL DISTRIBUTION WIDTH 17.6 % (11.6-14.6)
[2021-12-08 07:23] LABS: CLARITY URINE CLEAR (CLEAR); COLOR URINE YELLOW (YELLOW); KETONES URINE NEGATIVE (NEGATIVE); LEUKOCYTE ESTERASE URINE NEGATIVE (NEGATIVE); NITRITE URINE NEGATIVE (NEGATIVE); OCCULT BLOOD URINE NEGATIVE (NEGATIVE); PROTEIN URINE TRACE (NEGATIVE); SPECIFIC GRAVITY URINE 1.018 (1.005-1.030); UROBILINOGEN URINE 0.2 E.U./dL (0.2-1.0)
[2021-12-08 07:37] LABS: *AMPHETAMINES SCREEN URINE PRESUMTIVE POSITIVE (NEGATIVE); *BARBITURATES SCREEN URINE NEGATIVE (NEGATIVE); *BENZODIAZEPINES SCREEN URINE PRESUMTIVE POSITIVE (NEGATIVE); *COCAINE SCREEN URINE NEGATIVE (NEGATIVE); CANNABINOID URINE SCREEN PRESUMTIVE POSITIVE (NEGATIVE); METHADONE URINE SCREEN NEGATIVE (NEGATIVE); OPIATES URINE SCREEN NEGATIVE (NEGATIVE); PHENCYCLIDINE URINE SCREEN NEGATIVE (NEGATIVE)
[2021-12-08 09:04] LABS: CHLORIDE 103 mEq/L (98-107)
[2021-12-08 09:12] LABS: ETHANOL BLOOD < 10 mg/dL
[2021-12-08] MEDS ORDERED: OLANZAPINE 5MG TABLET PO SCH (11:15)
[2021-12-08] MEDS: OLANZAPINE 5MG TABLET PO SCH ×2 (13:26→13:33)
[2021-12-09] MEDS: OLANZAPINE 5MG TABLET PO SCH (17:00)
[2021-12-09 18:46] VITALS: BP 136/88
== END 2021-12-09 19:04 ==
LOC: ER 21:15
DX: F20.1 Disorganized schizophrenia (principal); R45.850 Homicidal ideations; F15.151 Other stimulant abuse with stimulant-induced psychotic disorder with hallucinations; F12.151 Cannabis abuse with psychotic disorder with hallucinations; F13.151 Sedative, hypnotic or anxiolytic abuse with sedative, hypnotic or anxiolytic-induced psychotic disorder with hallucinations; R45.1 Restlessness and agitation; R00.0 Tachycardia, unspecified; R94.31 Abnormal electrocardiogram [ECG] [EKG]; Z20.822 Contact with and (suspected) exposure to COVID-19; F34.1 Dysthymic disorder; Z75.1 Person awaiting admission to adequate facility elsewhere
CPT/HCPCS: 36415; 80053; 80305; 80320; 81001; 85025; 93005; 99283; C9803; U0003; U0005; G0480

== ENCOUNTER 2022-01-11 23:36 | Emergency (ER) | payer MEDICAID ==
[~2022-01-11] VITALS: Ht 180.3 cm; Wt 84.0 kg
[2022-01-12] MEDS ORDERED: LORAZEPAM 1MG TABLET PO ONE (00:15)
[2022-01-12] MEDS ORDERED: ASPIRIN 325MG EC TABLET PO ONE (00:15)
[2022-01-12 00:39] LABS: CHLORIDE 105 mEq/L (98-107)
[2022-01-12 00:46] LABS: ETHANOL BLOOD < 10 mg/dL
[2022-01-12 01:02] LABS: BASOPHILS % 0.2 % (0.0-2.0); HEMATOCRIT. 36.7 % (42.0-52.0); HEMOGLOBIN. 11.8 g/dL (14.0-18.0); LYMPHOCYTES % 8.7 % (20.0-50.0); MEAN CORPUSCULAR HEMOGLOBIN 25.1 pg (28.0-32.0); MEAN PLATELET VOLUME 7.3 fl (7.4-10.4); MONOCYTES % 4.1 % (2.0-8.0); PLATELET 273 x1000/uL (130-400); RED BLOOD CELL COUNT 4.71 mill/uL (4.7-6.1); RED CELL DISTRIBUTION WIDTH 17.7 % (11.6-14.6)
[2022-01-12 03:27] VITALS: BP 128/72
== END 2022-01-12 09:52 | disposition home or self-care (01) ==
LOC: ER 23:46
DX: F20.0 Paranoid schizophrenia (principal); R51.9 Headache, unspecified; R07.89 Other chest pain; M79.18 Myalgia, other site
CPT/HCPCS: 36415; 80053; 80307; 80320; 80329; 84484; 85025; 99283; G0480

== ENCOUNTER 2022-02-10 13:56 | Emergency (ER) | payer MEDICAID ==
[~2022-02-10] VITALS: Ht 177.8 cm; Wt 82.0 kg
[2022-02-10 15:48] LABS: BASOPHILS % 0.3 % (0.0-2.0); EOSINOPHILS % 0.7 % (0.0-5.0); HEMATOCRIT. 37.5 % (42.0-52.0); HEMOGLOBIN. 12.2 g/dL (14.0-18.0); LYMPHOCYTES % 32.1 % (20.0-50.0); MEAN CORPUSCULAR HEMOGLOBIN 25.2 pg (28.0-32.0); MEAN CORPUSCULAR VOLUME 77.4 fL (80.0-94.0); MEAN PLATELET VOLUME 7.1 fl (7.4-10.4); NEUTROPHILS % 57.9 % (40.0-76.0); PLATELET 288 x1000/uL (130-400); RED BLOOD CELL COUNT 4.85 mill/uL (4.7-6.1); RED CELL DISTRIBUTION WIDTH 17.8 % (11.6-14.6)
[2022-02-10 16:11] LABS: CHLORIDE 109 mEq/L (98-107)
[2022-02-10 16:21] LABS: ETHANOL BLOOD 39 mg/dL
[2022-02-10] MEDS ORDERED: IBUPROFEN 600MG TABLET PO ONE (19:15)
[2022-02-10 21:38] VITALS: BP 124/64
== END 2022-02-10 21:42 | disposition home or self-care (01) ==
LOC: ER 13:56
DX: R07.89 Other chest pain (principal); R10.13 Epigastric pain; R00.0 Tachycardia, unspecified
CPT/HCPCS: 36415; 71045; 80053; 80320; 84484; 85025; 93005; 99285; G0480

== ENCOUNTER 2022-02-11 03:28 | Emergency (ER) | payer MEDICAID ==
[~2022-02-11] VITALS: Ht 175.3 cm; Wt 82.0 kg
[2022-02-11 03:34] VITALS: BP 132/78
== END 2022-02-11 04:02 | disposition home or self-care (01) ==
LOC: ER 03:35
DX: R07.89 Other chest pain (principal); F15.90 Other stimulant use, unspecified, uncomplicated; Z88.8 Allergy status to other drugs, medicaments and biological substances; Z98.890 Other specified postprocedural states
CPT/HCPCS: 93005; 99283

== ENCOUNTER 2022-04-26 17:40 | Emergency (ER) | payer MEDICAID ==
[~2022-04-26] VITALS: Ht 170.2 cm; Wt 109.0 kg
[2022-04-26] MEDS ORDERED: LORAZEPAM 1MG TABLET PO ONE (19:00)
[2022-04-26 19:13] LABS: BASOPHILS % 0.1 % (0.0-2.0); HEMOGLOBIN. 12.2 g/dL (14.0-18.0); MEAN CORPUSCULAR HEMOGLOBIN 25.2 pg (28.0-32.0); MEAN CORPUSCULAR VOLUME 78.2 fL (80.0-94.0); MEAN PLATELET VOLUME 7.4 fl (7.4-10.4); NEUTROPHILS % 85.9 % (40.0-76.0); PLATELET 342 x1000/uL (130-400); RED BLOOD CELL COUNT 4.85 mill/uL (4.7-6.1); RED CELL DISTRIBUTION WIDTH 18.4 % (11.6-14.6)
[2022-04-26 19:21] LABS: CHLORIDE 105 mEq/L (98-107)
[2022-04-26 19:27] LABS: ETHANOL BLOOD 43 mg/dL
[2022-04-26] MEDS ORDERED: OLANZAPINE 10 MG/VIAL IM ONE (20:15)
[2022-04-26] MEDS ORDERED: HALOPERIDOL LACTATE 5MG/ML VIAL IM ONE (20:15)
[2022-04-26] MEDS ORDERED: LORAZEPAM 2MG/ML CPJ IM ONE (20:15)
[2022-04-26 20:48] LABS: CLARITY URINE CLOUDY (CLEAR); COLOR URINE YELLOW (YELLOW); KETONES URINE 1+ (NEGATIVE); LEUKOCYTE ESTERASE URINE NEGATIVE (NEGATIVE); NITRITE URINE NEGATIVE (NEGATIVE); OCCULT BLOOD URINE TRACE (NEGATIVE); PH URINE 6.5 (4.5-8.0); PROTEIN URINE 3+ (NEGATIVE); SPECIFIC GRAVITY URINE 1.025 (1.005-1.030)
[2022-04-26 20:58] LABS: *AMPHETAMINES SCREEN URINE PRESUMTIVE POSITIVE (NEGATIVE); *BARBITURATES SCREEN URINE NEGATIVE (NEGATIVE); *BENZODIAZEPINES SCREEN URINE PRESUMTIVE POSITIVE (NEGATIVE); *COCAINE SCREEN URINE NEGATIVE (NEGATIVE); CANNABINOID URINE SCREEN NEGATIVE (NEGATIVE); METHADONE URINE SCREEN NEGATIVE (NEGATIVE); OPIATES URINE SCREEN NEGATIVE (NEGATIVE); PHENCYCLIDINE URINE SCREEN NEGATIVE (NEGATIVE)
[2022-04-27 00:15] VITALS: BP 133/74
[2022-04-27] MEDS ORDERED: AMLO2.5T45 MT (20:14)
== END 2022-04-27 00:15 | disposition home or self-care (01) ==
LOC: ER 17:57
DX: R07.89 Other chest pain (principal); F20.9 Schizophrenia, unspecified; T43.621A Poisoning by amphetamines, accidental (unintentional), initial encounter; Y92.89 Other specified places as the place of occurrence of the external cause
CPT/HCPCS: 36415; 80053; 80305; 80307; 80320; 80329; 81003; 83690; 84484; 85025; 93005; 96372; 99284; J1630; J2060; Z7610; G0480

== ENCOUNTER 2022-04-27 17:47 | Emergency (ER) | payer MEDICAID ==
[~2022-04-27] VITALS: Ht 175.3 cm; Wt 91.0 kg
[2022-04-27] MEDS ORDERED: LORAZEPAM 1MG TABLET PO ONE (19:00)
[2022-04-27] MEDS ORDERED: DIPHENHYDRAMINE 25MG CAPSULE PO ONE (19:00)
[2022-04-27 19:22] LABS: BASOPHILS % 0.2 % (0.0-2.0); HEMATOCRIT. 36.8 % (42.0-52.0); LYMPHOCYTES % 8.9 % (20.0-50.0); MEAN CORPUSCULAR HEMOGLOBIN 25.1 pg (28.0-32.0); MEAN PLATELET VOLUME 7.2 fl (7.4-10.4); MONOCYTES % 6.1 % (2.0-8.0); NEUTROPHILS % 84.8 % (40.0-76.0); PLATELET 321 x1000/uL (130-400); RED BLOOD CELL COUNT 4.78 mill/uL (4.7-6.1); RED CELL DISTRIBUTION WIDTH 19.2 % (11.6-14.6)
[2022-04-27 19:23] LABS: CHLORIDE 106 mEq/L (98-107)
[2022-04-27 19:31] LABS: ETHANOL BLOOD < 10 mg/dL
[2022-04-27] MEDS ORDERED: AMLO2.5T45 MT (20:14)
[2022-04-27] MEDS ORDERED: AMLODIPINE 2.5MG TABLET PO ONE (20:15)
[2022-04-27 20:54] VITALS: BP 119/63
== END 2022-04-27 21:00 | disposition home or self-care (01) ==
LOC: ER 17:47
DX: I10 Essential (primary) hypertension (principal); R07.89 Other chest pain; F15.10 Other stimulant abuse, uncomplicated
CPT/HCPCS: 36415; 80053; 80307; 80320; 80329; 85025; 99283; G0480

== ENCOUNTER 2022-04-28 19:15 | Emergency (ER) | payer MEDICAID ==
[~2022-04-28] VITALS: Ht 172.7 cm; Wt 70.0 kg
[~2022-04-28 19:15] MED LIST changes: +AMLO2.5T45 MT
[2022-04-28] MEDS ORDERED: DIPHENHYDRAMINE 50MG/ML VIAL IM STA (20:48)
[2022-04-28 21:38] LABS: BASOPHILS % 0.4 % (0.0-2.0); HEMATOCRIT. 35.6 % (42.0-52.0); HEMOGLOBIN. 11.5 g/dL (14.0-18.0); LYMPHOCYTES % 18.2 % (20.0-50.0); MEAN CORPUSCULAR HEMOGLOBIN 25.1 pg (28.0-32.0); MEAN CORPUSCULAR VOLUME 77.5 fL (80.0-94.0); MEAN PLATELET VOLUME 7.1 fl (7.4-10.4); MONOCYTES % 9.5 % (2.0-8.0); NEUTROPHILS % 71.9 % (40.0-76.0); PLATELET 320 x1000/uL (130-400); RED CELL DISTRIBUTION WIDTH 18.6 % (11.6-14.6)
[2022-04-28 21:47] LABS: CHLORIDE 105 mEq/L (98-107)
[2022-04-28 21:54] LABS: ETHANOL BLOOD < 10 mg/dL
[2022-04-28] MEDS: LORAZEPAM 2MG/ML CPJ IM STA ×2 (22:27→22:35)
[2022-04-28] MEDS: OLANZAPINE 10 MG/VIAL IM STA ×2 (22:28→22:36)
[2022-04-28] MEDS ORDERED: DIPHENHYDRAMINE 50MG/ML VIAL IM NR (22:45)
[2022-04-28] MEDS ORDERED: ACETAMINOPHEN 325MG TABLET PO ONE (23:30)
[2022-04-28] MEDS ORDERED: LORAZEPAM 2MG/ML CPJ IM STA (23:32)
[2022-04-28] MEDS ORDERED: ZIPRASIDONE MESYLATE 20MG/VIAL IM STA (23:32)
[2022-04-29 06:56] LABS: *AMPHETAMINES SCREEN URINE PRESUMTIVE POSITIVE (NEGATIVE); *BARBITURATES SCREEN URINE NEGATIVE (NEGATIVE); *BENZODIAZEPINES SCREEN URINE PRESUMTIVE POSITIVE (NEGATIVE); *COCAINE SCREEN URINE NEGATIVE (NEGATIVE); CANNABINOID URINE SCREEN NEGATIVE (NEGATIVE); METHADONE URINE SCREEN NEGATIVE (NEGATIVE); OPIATES URINE SCREEN NEGATIVE (NEGATIVE); PHENCYCLIDINE URINE SCREEN NEGATIVE (NEGATIVE)
[2022-04-29 12:00] VITALS: BP 124/63
== END 2022-04-29 13:16 | disposition home or self-care (01) ==
LOC: ER 19:15
DX: F29 Unspecified psychosis not due to a substance or known physiological condition (principal); F15.10 Other stimulant abuse, uncomplicated; I10 Essential (primary) hypertension; Z20.822 Contact with and (suspected) exposure to COVID-19; Z86.59 Personal history of other mental and behavioral disorders
CPT/HCPCS: 36415; 80053; 80305; 80307; 80320; 80329; 85025; 87426; 96372; 99285; C9803; J1200; J2060; J3486; J3490; Z7610; G0480

== ENCOUNTER 2022-09-09 02:20 | Emergency (ER) | payer MEDICAID ==
[~2022-09-09] VITALS: Ht 177.8 cm; Wt 81.0 kg
[2022-09-09] MEDS ORDERED: DIPHENHYDRAMINE 50MG/ML VIAL IM ONE (02:45)
[2022-09-09] MEDS ORDERED: LORAZEPAM 2MG/ML CPJ IM ONE (02:45)
[2022-09-09] MEDS ORDERED: HALOPERIDOL LACTATE 5MG/ML VIAL IM ONE (02:45)
[2022-09-09 04:16] LABS: BASOPHILS % 0.4 % (0.0-2.0); HEMATOCRIT. 32.4 % (42.0-52.0); LYMPHOCYTES % 8.3 % (20.0-50.0); MEAN CORPUSCULAR VOLUME 76.7 fL (80.0-94.0); MEAN PLATELET VOLUME 7.5 fl (7.4-10.4); MONOCYTES % 7.8 % (2.0-8.0); NEUTROPHILS % 83.5 % (40.0-76.0); PLATELET 239 x1000/uL (130-400); RED BLOOD CELL COUNT 4.23 mill/uL (4.7-6.1); RED CELL DISTRIBUTION WIDTH 18.9 % (11.6-14.6)
[2022-09-09 04:23] LABS: CHLORIDE 106 mEq/L (98-107)
[2022-09-09 04:32] LABS: ETHANOL BLOOD < 10 mg/dL (-10)
[2022-09-09 05:31] VITALS: O2SAT 99
[2022-09-09 06:07] LABS: *AMPHETAMINES SCREEN URINE PRESUMTIVE POSITIVE (NEGATIVE); *BARBITURATES SCREEN URINE NEGATIVE (NEGATIVE); *BENZODIAZEPINES SCREEN URINE PRESUMTIVE POSITIVE (NEGATIVE); *COCAINE SCREEN URINE NEGATIVE (NEGATIVE); CANNABINOID URINE SCREEN NEGATIVE (NEGATIVE); METHADONE URINE SCREEN NEGATIVE (NEGATIVE); OPIATES URINE SCREEN NEGATIVE (NEGATIVE); PHENCYCLIDINE URINE SCREEN NEGATIVE (NEGATIVE)
[2022-09-09 08:14] VITALS: BP 124/84; PULSE 75; RESP 16; TEMP 98.6
== END 2022-09-09 09:08 | disposition home or self-care (01) ==
LOC: ER 02:20
DX: R07.89 Other chest pain (principal); R45.1 Restlessness and agitation; F20.9 Schizophrenia, unspecified; I10 Essential (primary) hypertension; F12.10 Cannabis abuse, uncomplicated; F15.10 Other stimulant abuse, uncomplicated
CPT/HCPCS: 80053; 80305; 80307; 80329; 80320; 85025; 36415; 93005; 96372; 99285; J1200; J1630; J2060; Z7610 ×3; G0480

== ENCOUNTER 2022-10-14 18:20 | Emergency (ER) | payer MEDICAID ==
[~2022-10-14] VITALS: Ht 175.3 cm; Wt 87.0 kg
[2022-10-14 18:31] VITALS: O2SAT 97
[2022-10-14 19:41] LABS: BASOPHILS % 0.3 % (0.0-2.0); DIFFERENTIAL COMMENT 0; EOSINOPHILS % 0.1 % (0.0-5.0); HEMATOCRIT. 35.5 % (42.0-52.0); HEMOGLOBIN. 11.3 g/dL (14.0-18.0); LYMPHOCYTES % 20.8 % (20.0-50.0); MEAN CORPUSCULAR HGB CONC 31.9 g/dL (31.0-37.0); MEAN CORPUSCULAR VOLUME 78.3 fL (80.0-94.0); MEAN PLATELET VOLUME 6.7 fl (7.4-10.4); NEUTROPHILS % 70.8 % (40.0-76.0); PLATELET 334 x1000/uL (130-400); RED BLOOD CELL COUNT 4.53 mill/uL (4.7-6.1); RED CELL DISTRIBUTION WIDTH 19.7 % (11.6-14.6); WHITE BLOOD COUNT 6.3 x1000/uL (4.5-11.0)
[2022-10-14 19:53] LABS: CHLORIDE 105 mEq/L (98-107); INDEX HEMOLYSI 1 (1-3); INDEX ICTERIC 1 (1-4); INDEX LIPEMIC 1 (1-3); POTASSIUM 3.8 mEq/L (3.5-5.1); SODIUM 136 mEq/L (136-145)
[2022-10-14 20:04] LABS: ALANINE AMINOTRANSFERASE 66 IU/L (13-61); ASPARTATE AMINOTRANSFERASE 26 IU/L (15-37); BILIRUBIN TOTAL 0.3 mg/dL (0.1-1.0); CALCIUM 9.2 mg/dL (8.5-10.1); CARBON DIOXIDE 25 mEq/L (21-32); CREATININE 1.1 mg/dL (0.6-1.3); ETHANOL BLOOD < 10 mg/dL (-10); GLUCOSE 98 mg/dL (70-105); PROTEIN TOTAL 8.5 g/dL (6.0-8.3); TROPONIN I HIGH SENSITIVITY 8 ng/L (<78); UREA NITROGEN BLOOD 19 mg/dL (7-21)
[2022-10-14 22:42] VITALS: BP 134/96; PULSE 97; RESP 16; TEMP 99.7
== END 2022-10-14 22:43 | disposition home or self-care (01) ==
LOC: ER 18:20
DX: R07.89 Other chest pain (principal); F15.10 Other stimulant abuse, uncomplicated; F12.10 Cannabis abuse, uncomplicated; I10 Essential (primary) hypertension; F20.9 Schizophrenia, unspecified
CPT/HCPCS: 36415; 71045; 80053; 80320; 84484; 85025; 93005; 99285; G0480

== ENCOUNTER 2023-10-13 13:57 | Emergency (ER) | payer MEDICAID, OTHER ==
[~2023-10-13] VITALS: Ht 177.8 cm; Wt 80.0 kg
[2023-10-13 14:13] VITALS: O2SAT 99
[2023-10-13] MEDS: SODIUM CHLORIDE 0.9% 1,000 ML IV ONE (14:30)
[2023-10-13] MEDS: LORAZEPAM 0.5MG TABLET PO ONE (14:30)
[2023-10-13] MEDS: LORAZEPAM 2MG/ML INJ IM ONE (15:00)
[2023-10-13] MEDS: HALOPERIDOL LACTATE 5MG/ML VIAL IM ONE (15:00)
[2023-10-13 15:03] LABS: BASOPHILS % 0.7 % (0.0-2.0); EOSINOPHILS % 0.1 % (0.0-5.0); HEMATOCRIT. 38.8 % (42.0-52.0); HEMOGLOBIN. 12.7 g/dL (14.0-18.0); LYMPHOCYTES % 25.1 % (20.0-50.0); MEAN CORPUSCULAR HEMOGLOBIN 27.8 pg (28.0-32.0); MEAN CORPUSCULAR HGB CONC 32.8 g/dL (31.0-37.0); MEAN CORPUSCULAR VOLUME 84.8 fL (80.0-94.0); MEAN PLATELET VOLUME 7.4 fl (7.4-10.4); MONOCYTES % 6.8 % (2.0-8.0); NEUTROPHILS % 67.3 % (40.0-76.0); PLATELET 390 x1000/uL (130-400); RED BLOOD CELL COUNT 4.57 mill/uL (4.7-6.1); RED CELL DISTRIBUTION WIDTH 15.6 % (11.6-14.6); WHITE BLOOD COUNT 5.2 x1000/uL (4.5-11.0)
[2023-10-13] MEDS: DIPHENHYDRAMINE 50MG/ML VIAL IM ONE (15:16)
[2023-10-13 15:17] LABS: CALCIUM 9.9 mg/dL (8.7-10.4); CARBON DIOXIDE 22 mEq/L (21-32)
[2023-10-13 15:22] LABS: CREATININE 1.2 mg/dL (0.6-1.3); ETHANOL BLOOD 35 mg/dL (<10); GLUCOSE 102 mg/dL (70-105); UREA NITROGEN BLOOD 10 mg/dL (9-23)
[2023-10-13 15:33] LABS: CHLORIDE 105 mEq/L (98-107); POTASSIUM 3.5 mEq/L (3.5-5.1); SODIUM 137 mEq/L (136-145)
[2023-10-13 15:42] LABS: ALANINE AMINOTRANSFERASE 34 IU/L (10-49); ASPARTATE AMINOTRANSFERASE 27 IU/L (<34); BILIRUBIN TOTAL 0.3 mg/dL (0.1-1.0); PROTEIN TOTAL 8.4 g/dL (6.0-8.3)
[2023-10-13 15:48] LABS: BILIRUBIN DIRECT < 0.1 mg/dL (<=3.0); TROPONIN I HIGH SENSITIVITY < 4 ng/L (3.0-53)
[2023-10-13 17:08] LABS: TROPONIN I HIGH SENSITIVITY < 4 ng/L (3.0-53)
[2023-10-13] MEDS: APIXABAN 5 MG TABLET PO ONE (18:49)
[2023-10-13 20:10] VITALS: TEMP 98.6
[2023-10-13 21:30] VITALS: BP 141/89; PULSE 90; RESP 20
== END 2023-10-13 21:37 | disposition short-term general hospital (02) ==
LOC: ER 13:57
DX: R07.89 Other chest pain (principal); I10 Essential (primary) hypertension; F20.9 Schizophrenia, unspecified; F12.10 Cannabis abuse, uncomplicated; F15.10 Other stimulant abuse, uncomplicated
CPT/HCPCS: 80076; 80048; 80320; 83880; 85025; 84484; 36415; 71045; 93005; 96372; 99285; J1200; J1630; J2060; J7030; Z7610; G0480

== ENCOUNTER 2023-10-26 16:27 | Emergency (ER) | payer OTHER ==
[~2023-10-26] VITALS: Ht 177.8 cm; Wt 82.0 kg
[2023-10-26] MEDS: LORAZEPAM 2MG/ML INJ IM ONE (16:56)
[2023-10-26] MEDS: DIPHENHYDRAMINE 50MG/ML VIAL IM ONE (16:56)
[2023-10-26] MEDS: HALOPERIDOL LACTATE 5MG/ML VIAL IM ONE (16:56)
[2023-10-26 17:45] VITALS: O2SAT 99
[2023-10-26] MEDS: SODIUM CHLORIDE 0.9% 1,000 ML IV ONE ×2 (18:06→21:54)
[2023-10-26 18:36] LABS: HEMATOCRIT. 36.4 % (42.0-52.0); MEAN CORPUSCULAR HEMOGLOBIN 27.4 pg (28.0-32.0); MEAN CORPUSCULAR HGB CONC 33.1 g/dL (31.0-37.0); MEAN CORPUSCULAR VOLUME 82.9 fL (80.0-94.0); PLATELET 344 x1000/uL (130-400); RED BLOOD CELL COUNT 4.39 mill/uL (4.7-6.1); RED CELL DISTRIBUTION WIDTH 15.2 % (11.6-14.6); WHITE BLOOD COUNT 9.5 x1000/uL (4.5-11.0)
[2023-10-26 18:43] LABS: CHLORIDE 108 mEq/L (98-107); POTASSIUM 3.7 mEq/L (3.5-5.1); SODIUM 142 mEq/L (136-145)
[2023-10-26 18:44] LABS: CARBON DIOXIDE 22 mEq/L (21-32); DIFFERENTIAL COMMENT 1
[2023-10-26 18:45] LABS: CALCIUM 9.9 mg/dL (8.7-10.4)
[2023-10-26 18:49] LABS: CREATININE 1.4 mg/dL (0.6-1.3); GLUCOSE 116 mg/dL (70-105)
[2023-10-26 18:50] LABS: ETHANOL BLOOD 44 mg/dL (<10); TROPONIN I HIGH SENSITIVITY 8 ng/L (3.0-53); UREA NITROGEN BLOOD 14 mg/dL (9-23)
[2023-10-26 18:51] LABS: ACETAMINOPHEN < 2 ug/mL (10-30); ALANINE AMINOTRANSFERASE 21 IU/L (10-49); ALBUMIN 4.7 g/dL (3.2-4.8); ASPARTATE AMINOTRANSFERASE 24 IU/L (<34)
[2023-10-26 18:52] LABS: BILIRUBIN TOTAL 0.3 mg/dL (0.1-1.0); PROTEIN TOTAL 8.2 g/dL (6.0-8.3)
[2023-10-26 19:20] LABS: PLATELET ESTIMATE NORMAL
[2023-10-27 08:00] VITALS: BP 136/67; PULSE 85; RESP 19; TEMP 37.00296; O2SAT 99
[2023-10-27] MEDS: DIPHENHYDRAMINE 25MG CAPSULE PO STA (10:22)
== END 2023-10-27 10:53 | disposition home or self-care (01) ==
LOC: ER 16:27
DX: R45.6 Violent behavior (principal); R45.1 Restlessness and agitation; R00.0 Tachycardia, unspecified; I10 Essential (primary) hypertension; F20.9 Schizophrenia, unspecified; Z20.822 Contact with and (suspected) exposure to COVID-19
CPT/HCPCS: 80053; 80307; 80329; 80320; 85025; 84484; 36415; 71045; 93005; 96360; 96361; 96372; 99285; 87426; J1200; J1630; J2060; J7030; Z7610 ×2; Q0163; G0480

== ENCOUNTER 2023-11-06 18:07 | Emergency (ER) | payer OTHER ==
[~2023-11-06] VITALS: Ht 177.8 cm; Wt 82.0 kg
[2023-11-06 18:08] VITALS: TEMP 98
[2023-11-06] MEDS: LORAZEPAM 2MG/ML INJ IM ONE (19:06)
[2023-11-06] MEDS: DIPHENHYDRAMINE 50MG/ML VIAL IM ONE (19:06)
[2023-11-06] MEDS: HALOPERIDOL LACTATE 5MG/ML VIAL IM ONE (19:06)
[2023-11-06] MEDS: NITROGLYCERIN 0.4MG TABLET SL SL PRN (19:08)
[2023-11-06] MEDS: ASPIRIN 81MG TABLET PO ONE (19:16)
[2023-11-06] MEDS: OLANZAPINE 10 MG/VIAL IM ONE (20:27)
[2023-11-06 22:41] VITALS: O2SAT 100
[2023-11-07 01:31] LABS: BASOPHILS % 0.4 % (0.0-2.0); CHLORIDE 106 mEq/L (98-107); HEMATOCRIT. 37.8 % (42.0-52.0); HEMOGLOBIN. 12.4 g/dL (14.0-18.0); LYMPHOCYTES % 10.8 % (20.0-50.0); MEAN CORPUSCULAR HEMOGLOBIN 27.1 pg (28.0-32.0); MEAN CORPUSCULAR HGB CONC 32.8 g/dL (31.0-37.0); MEAN CORPUSCULAR VOLUME 82.6 fL (80.0-94.0); MEAN PLATELET VOLUME 7.3 fl (7.4-10.4); MONOCYTES % 6.9 % (2.0-8.0); NEUTROPHILS % 81.9 % (40.0-76.0); PLATELET 286 x1000/uL (130-400); POTASSIUM 4.3 mEq/L (3.5-5.1); RED BLOOD CELL COUNT 4.58 mill/uL (4.7-6.1); RED CELL DISTRIBUTION WIDTH 15.7 % (11.6-14.6); WHITE BLOOD COUNT 8.7 x1000/uL (4.5-11.0)
[2023-11-07 01:32] LABS: SODIUM 138 mEq/L (136-145)
[2023-11-07 01:33] LABS: CALCIUM 10.4 mg/dL (8.7-10.4); CARBON DIOXIDE 27 mEq/L (21-32)
[2023-11-07 01:38] LABS: CREATININE 1.2 mg/dL (0.6-1.3); GLUCOSE 97 mg/dL (70-105); PARTIAL THROMBOPLASTIN TIME 21.4 sec (23.4-31.0); PROTHROMBIN TIME 11.4 sec (9.6-11.0); UREA NITROGEN BLOOD 15 mg/dL (9-23)
[2023-11-07 01:39] LABS: ACETAMINOPHEN < 2 ug/mL (10-30)
[2023-11-07 01:40] LABS: TROPONIN I HIGH SENSITIVITY 8 ng/L (3.0-53)
[2023-11-07 01:41] LABS: ETHANOL BLOOD < 10 mg/dL (<10)
[2023-11-07 03:00] VITALS: BP 162/76; PULSE 99; RESP 19; O2SAT 97
[2023-11-07 03:32] LABS: TROPONIN I HIGH SENSITIVITY 9 ng/L (3.0-53)
[2023-11-07] MEDS ORDERED: IOHEXOL-350 100 ML BOTTLE ONE (06:20)
== END 2023-11-07 05:46 | disposition home or self-care (01) ==
LOC: ER 18:07
DX: R07.89 Other chest pain (principal); R61 Generalized hyperhidrosis; F98.9 Unspecified behavioral and emotional disorders with onset usually occurring in childhood and adolescence; I10 Essential (primary) hypertension; F20.9 Schizophrenia, unspecified; F15.10 Other stimulant abuse, uncomplicated; Z20.822 Contact with and (suspected) exposure to COVID-19
CPT/HCPCS: 36415; 71045; 71275; 93005; 96372; 99285; 87426; 80048; 80307; 80329; 80320; 83880; 85025; 85610; 85730; 84484; Z7610 ×3; J3490; J1200; J1630; J2060; Q9967; G0480

== ENCOUNTER 2023-11-08 15:32 | Emergency (ER) | payer OTHER ==
[~2023-11-08] VITALS: Ht 172.7 cm; Wt 80.0 kg
[2023-11-08] MEDS: DIPHENHYDRAMINE 50MG/ML VIAL IM ONE (15:48)
[2023-11-08 16:18] LABS: BASOPHILS % 0.4 % (0.0-2.0); EOSINOPHILS % 0.1 % (0.0-5.0); HEMATOCRIT. 35.7 % (42.0-52.0); HEMOGLOBIN. 11.6 g/dL (14.0-18.0); LYMPHOCYTES % 15.2 % (20.0-50.0); MEAN CORPUSCULAR HEMOGLOBIN 26.6 pg (28.0-32.0); MEAN CORPUSCULAR HGB CONC 32.5 g/dL (31.0-37.0); MEAN CORPUSCULAR VOLUME 81.7 fL (80.0-94.0); MEAN PLATELET VOLUME 7.3 fl (7.4-10.4); MONOCYTES % 6.8 % (2.0-8.0); NEUTROPHILS % 77.5 % (40.0-76.0); PLATELET 269 x1000/uL (130-400); RED BLOOD CELL COUNT 4.37 mill/uL (4.7-6.1); RED CELL DISTRIBUTION WIDTH 16.1 % (11.6-14.6); WHITE BLOOD COUNT 4.2 x1000/uL (4.5-11.0)
[2023-11-08 16:26] LABS: CHLORIDE 106 mEq/L (98-107); POTASSIUM 3.6 mEq/L (3.5-5.1); SODIUM 141 mEq/L (136-145)
[2023-11-08 16:27] LABS: CALCIUM 9.9 mg/dL (8.7-10.4); CARBON DIOXIDE 26 mEq/L (21-32)
[2023-11-08 16:32] LABS: CREATININE 1.4 mg/dL (0.6-1.3); GLUCOSE 141 mg/dL (70-105); UREA NITROGEN BLOOD 20 mg/dL (9-23)
[2023-11-08 16:34] LABS: ACETAMINOPHEN < 2 ug/mL (10-30); ETHANOL BLOOD < 10 mg/dL (<10)
[2023-11-08 17:15] VITALS: O2SAT 98
[2023-11-08] MEDS: LORAZEPAM 2MG/ML INJ IM ONE (17:25)
[2023-11-08] MEDS: HALOPERIDOL LACTATE 5MG/ML VIAL IM ONE (17:25)
[2023-11-09 06:30] VITALS: TEMP 36.66960
[2023-11-09 09:31] VITALS: BP 114/62; PULSE 89; RESP 14; O2SAT 100
== END 2023-11-09 12:54 | disposition home or self-care (01) ==
LOC: ER 15:32
DX: R46.2 Strange and inexplicable behavior (principal); I10 Essential (primary) hypertension; Z86.59 Personal history of other mental and behavioral disorders
CPT/HCPCS: 80048; 80307; 80329; 80320; 85025; 36415; 93005; 96372; 99291; J1200; J1630; J2060; Z7610 ×4; G0480

== ENCOUNTER 2023-12-26 16:18 | Emergency (ER) | payer OTHER ==
[2023-12-26] MEDS: HALOPERIDOL LACTATE 5MG/ML VIAL IM STA (17:28)
[2023-12-26] MEDS: LORAZEPAM 2MG/ML INJ IM ONE (17:28)
[2023-12-26] MEDS: DIPHENHYDRAMINE 50MG/ML VIAL IM STA (17:28)
[2023-12-26 17:44] LABS: BASOPHILS % 0.3 % (0.0-2.0); EOSINOPHILS % 0.1 % (0.0-5.0); HEMOGLOBIN. 13.8 g/dL (14.0-18.0); LYMPHOCYTES % 32.9 % (20.0-50.0); MEAN CORPUSCULAR HEMOGLOBIN 26.8 pg (28.0-32.0); MEAN CORPUSCULAR HGB CONC 32.2 g/dL (31.0-37.0); MEAN CORPUSCULAR VOLUME 83.4 fL (80.0-94.0); MEAN PLATELET VOLUME 7.1 fl (7.4-10.4); MONOCYTES % 8.9 % (2.0-8.0); NEUTROPHILS % 57.8 % (40.0-76.0); PLATELET 397 x1000/uL (130-400); RED BLOOD CELL COUNT 5.16 mill/uL (4.7-6.1); RED CELL DISTRIBUTION WIDTH 19.1 % (11.6-14.6); WHITE BLOOD COUNT 5.7 x1000/uL (4.5-11.0)
[2023-12-26 17:51] LABS: CHLORIDE 105 mEq/L (98-107); POTASSIUM 3.5 mEq/L (3.5-5.1); SODIUM 138 mEq/L (136-145)
[2023-12-26 17:52] LABS: CALCIUM 10.4 mg/dL (8.7-10.4); CARBON DIOXIDE 21 mEq/L (21-32)
[2023-12-26 17:57] LABS: CREATININE 1.8 mg/dL (0.6-1.3); ETHANOL BLOOD 56 mg/dL (<10); GLUCOSE 158 mg/dL (70-105); UREA NITROGEN BLOOD 18 mg/dL (9-23)
[2023-12-26 17:59] LABS: ACETAMINOPHEN < 2 ug/mL (10-30)
[2023-12-26 20:10] LABS: TROPONIN I HIGH SENSITIVITY 8 ng/L (3.0-53)
[2023-12-26 21:11] VITALS: BP 138/91; PULSE 119; RESP 19; TEMP 36.83628; O2SAT 99
[2023-12-26] MEDS: LORAZEPAM 1MG TABLET PO ONE (21:18)
== END 2023-12-26 21:11 | disposition home or self-care (01) ==
LOC: ER 16:18
DX: F15.10 Other stimulant abuse, uncomplicated (principal); I10 Essential (primary) hypertension; F20.9 Schizophrenia, unspecified
CPT/HCPCS: 80048; 80307; 80329; 80320; 85025; 84484; 36415; 71045; 93005; 96372; 99285; J1200; J1630; J2060; Z7610 ×3; G0480

== ENCOUNTER 2024-01-02 21:28 | Emergency (ER) | payer OTHER ==
[~2024-01-02] VITALS: Ht 182.9 cm; Wt 84.0 kg
[2024-01-02] MEDS: OLANZAPINE 10 MG/VIAL IM STA (21:50)
[2024-01-02 22:48] LABS: BASOPHILS % 0.7 % (0.0-2.0); HEMATOCRIT. 38.7 % (42.0-52.0); HEMOGLOBIN. 12.7 g/dL (14.0-18.0); MEAN CORPUSCULAR HEMOGLOBIN 27.3 pg (28.0-32.0); MEAN CORPUSCULAR HGB CONC 32.7 g/dL (31.0-37.0); MEAN CORPUSCULAR VOLUME 83.4 fL (80.0-94.0); MEAN PLATELET VOLUME 7.1 fl (7.4-10.4); MONOCYTES % 6.2 % (2.0-8.0); NEUTROPHILS % 75.1 % (40.0-76.0); PLATELET 307 x1000/uL (130-400); RED BLOOD CELL COUNT 4.64 mill/uL (4.7-6.1); RED CELL DISTRIBUTION WIDTH 19.3 % (11.6-14.6); WHITE BLOOD COUNT 4.3 x1000/uL (4.5-11.0)
[2024-01-02 22:53] LABS: CHLORIDE 109 mEq/L (98-107); POTASSIUM 4.5 mEq/L (3.5-5.1); SODIUM 141 mEq/L (136-145)
[2024-01-02 22:54] LABS: CALCIUM 9.9 mg/dL (8.7-10.4); CARBON DIOXIDE 23 mEq/L (21-32)
[2024-01-02 22:59] LABS: CREATININE 1.5 mg/dL (0.6-1.3); ETHANOL BLOOD < 10 mg/dL (<10); GLUCOSE 154 mg/dL (70-105); UREA NITROGEN BLOOD 14 mg/dL (9-23)
[2024-01-02 23:01] LABS: ACETAMINOPHEN < 2 ug/mL (10-30)
[2024-01-03 00:59] VITALS: O2SAT 97
[2024-01-03 01:30] LABS: CLARITY URINE CLEAR (CLEAR); COLOR URINE YELLOW (YELLOW); GLUCOSE URINE NEGATIVE (NEGATIVE); KETONES URINE NEGATIVE (NEGATIVE); LEUKOCYTE ESTERASE URINE NEGATIVE (NEGATIVE); NITRITE URINE NEGATIVE (NEGATIVE); OCCULT BLOOD URINE NEGATIVE (NEGATIVE); PH URINE 8.5 (4.5-8.0); PROTEIN URINE 1+ (NEGATIVE); SPECIFIC GRAVITY URINE 1.022 (1.005-1.030); UROBILINOGEN URINE 0.2 E.U./dL (0.2-1.0)
[2024-01-03 01:39] LABS: WBC URINE 0-2 /hpf (0-2)
[2024-01-03 01:40] LABS: BACTERIA URINE NONE SEEN; RBC URINE 0-2 /hpf (0-2); SQUAMOUS EPITHELIAL CELL URINE NONE SEEN /lpf (RARE/1+)
[2024-01-03 01:46] LABS: *AMPHETAMINES SCREEN URINE PRESUMPTIVE POSITIVE (NEGATIVE); *BARBITURATES SCREEN URINE NEGATIVE (NEGATIVE); *BENZODIAZEPINES SCREEN URINE NEGATIVE (NEGATIVE); *COCAINE SCREEN URINE NEGATIVE (NEGATIVE); CANNABINOID URINE SCREEN NEGATIVE (NEGATIVE); ECSTASY MDMA SCREEN URINE NEGATIVE (NEGATIVE); METHADONE URINE SCREEN NEGATIVE (NEGATIVE); OPIATES URINE SCREEN NEGATIVE (NEGATIVE); PHENCYCLIDINE URINE SCREEN NEGATIVE (NEGATIVE)
[2024-01-03 04:39] LABS: BASOPHILS % 0.6 % (0.0-2.0); HEMATOCRIT. 39.9 % (42.0-52.0); HEMOGLOBIN. 12.9 g/dL (14.0-18.0); LYMPHOCYTES % 18.3 % (20.0-50.0); MEAN CORPUSCULAR HEMOGLOBIN 27.5 pg (28.0-32.0); MEAN CORPUSCULAR HGB CONC 32.3 g/dL (31.0-37.0); MEAN PLATELET VOLUME 7.3 fl (7.4-10.4); MONOCYTES % 7.3 % (2.0-8.0); NEUTROPHILS % 73.8 % (40.0-76.0); PLATELET 289 x1000/uL (130-400); RED CELL DISTRIBUTION WIDTH 19.6 % (11.6-14.6); WHITE BLOOD COUNT 7.8 x1000/uL (4.5-11.0)
[2024-01-03 04:44] LABS: CHLORIDE 107 mEq/L (98-107); POTASSIUM 4.2 mEq/L (3.5-5.1); SODIUM 143 mEq/L (136-145)
[2024-01-03 04:45] LABS: CARBON DIOXIDE 28 mEq/L (21-32)
[2024-01-03 04:50] LABS: CREATININE 1.1 mg/dL (0.6-1.3); GLUCOSE 74 mg/dL (70-105); UREA NITROGEN BLOOD 14 mg/dL (9-23)
[2024-01-03 04:54] LABS: ETHANOL BLOOD < 10 mg/dL (<10)
[2024-01-03] MEDS: DIPHENHYDRAMINE 50MG/ML VIAL IM PRN (07:37)
[2024-01-03 08:52] VITALS: BP 136/89; PULSE 76; RESP 16; TEMP 36.72516; O2SAT 98
== END 2024-01-03 08:55 | disposition home or self-care (01) ==
LOC: ER 21:28
DX: T43.621A Poisoning by amphetamines, accidental (unintentional), initial encounter (principal); F17.200 Nicotine dependence, unspecified, uncomplicated; I10 Essential (primary) hypertension; Z86.59 Personal history of other mental and behavioral disorders; Y92.9 Unspecified place or not applicable
CPT/HCPCS: 80048 ×2; 80307; 80329; 80320 ×2; 85025 ×2; 36415 ×2; 96372 ×2; 99285; 80305; 81003; J3490; Z7610 ×3; J1200; G0480

== ENCOUNTER 2024-01-18 18:22 | Emergency (ER) | payer OTHER ==
[~2024-01-18] VITALS: Ht 175.3 cm; Wt 75.0 kg
[2024-01-18 18:25] VITALS: O2SAT 98
[2024-01-18] MEDS: DIPHENHYDRAMINE 50MG/ML VIAL IM STA (18:45)
[2024-01-18 19:16] LABS: BASOPHILS % 0.3 % (0.0-2.0); EOSINOPHILS % 0.1 % (0.0-5.0); HEMATOCRIT. 37.6 % (42.0-52.0); HEMOGLOBIN. 12.3 g/dL (14.0-18.0); MEAN CORPUSCULAR HEMOGLOBIN 27.2 pg (28.0-32.0); MEAN CORPUSCULAR HGB CONC 32.7 g/dL (31.0-37.0); MEAN PLATELET VOLUME 7.3 fl (7.4-10.4); MONOCYTES % 8.3 % (2.0-8.0); NEUTROPHILS % 78.3 % (40.0-76.0); PLATELET 211 x1000/uL (130-400); RED BLOOD CELL COUNT 4.53 mill/uL (4.7-6.1); RED CELL DISTRIBUTION WIDTH 19.9 % (11.6-14.6); WHITE BLOOD COUNT 5.7 x1000/uL (4.5-11.0)
[2024-01-18 19:23] LABS: CHLORIDE 107 mEq/L (98-107); POTASSIUM 3.6 mEq/L (3.5-5.1); SODIUM 140 mEq/L (136-145)
[2024-01-18 19:24] LABS: CALCIUM 9.4 mg/dL (8.7-10.4); CARBON DIOXIDE 24 mEq/L (21-32)
[2024-01-18 19:29] LABS: CREATININE 1.4 mg/dL (0.6-1.3); GLUCOSE 163 mg/dL (70-105); UREA NITROGEN BLOOD 13 mg/dL (9-23)
[2024-01-18 19:30] LABS: ETHANOL BLOOD < 10 mg/dL (<10)
[2024-01-18] MEDS: LORAZEPAM 2MG/ML INJ IM STA (19:42)
[2024-01-18] MEDS: HALOPERIDOL LACTATE 5MG/ML VIAL IM STA (19:42)
[2024-01-19 02:30] VITALS: TEMP 36.94740
[2024-01-19 11:34] VITALS: BP 136/81; PULSE 87; RESP 18; O2SAT 99
== END 2024-01-19 12:40 | disposition home or self-care (01) ==
LOC: ER 18:22
DX: F41.9 Anxiety disorder, unspecified (principal); I10 Essential (primary) hypertension; F20.9 Schizophrenia, unspecified; F15.10 Other stimulant abuse, uncomplicated
CPT/HCPCS: 80048; 80320; 85025; 36415; 96372; 99284; J1200; J1630; J2060; G0480

== ENCOUNTER 2024-02-23 17:02 | Emergency (ER) | payer OTHER ==
[~2024-02-23] VITALS: Ht 177.8 cm; Wt 90.0 kg
[2024-02-23 17:05] VITALS: O2SAT 99
[2024-02-23] MEDS: ASPIRIN 325MG EC TABLET PO ONE (18:29)
[2024-02-23 18:52] LABS: BASOPHILS % 0.2 % (0.0-2.0); HEMATOCRIT. 37.2 % (42.0-52.0); HEMOGLOBIN. 12.3 g/dL (14.0-18.0); LYMPHOCYTES % 15.1 % (20.0-50.0); MEAN CORPUSCULAR VOLUME 81.9 fL (80.0-94.0); MEAN PLATELET VOLUME 7.6 fl (7.4-10.4); MONOCYTES % 8.3 % (2.0-8.0); NEUTROPHILS % 76.4 % (40.0-76.0); PLATELET 263 x1000/uL (130-400); RED BLOOD CELL COUNT 4.53 mill/uL (4.7-6.1); RED CELL DISTRIBUTION WIDTH 18.8 % (11.6-14.6)
[2024-02-23] MEDS: APIXABAN 5 MG TABLET PO STA (18:55)
[2024-02-23 19:00] LABS: CARBON DIOXIDE 20 mEq/L (21-32); CHLORIDE 105 mEq/L (98-107); POTASSIUM 3.8 mEq/L (3.5-5.1); SODIUM 140 mEq/L (136-145)
[2024-02-23 19:01] LABS: CALCIUM 9.9 mg/dL (8.7-10.4)
[2024-02-23 19:02] LABS: PARTIAL THROMBOPLASTIN TIME 22.8 sec (23.4-31.0); PROTHROMBIN TIME 11.1 sec (9.6-11.0)
[2024-02-23 19:05] LABS: CREATININE 1.4 mg/dL (0.6-1.3); GLUCOSE 97 mg/dL (70-105)
[2024-02-23 19:06] LABS: ETHANOL BLOOD < 10 mg/dL (<10); UREA NITROGEN BLOOD 15 mg/dL (9-23)
[2024-02-23 19:07] LABS: ACETAMINOPHEN < 2 ug/mL (10-30); TROPONIN I HIGH SENSITIVITY 7 ng/L (3.0-53)
[2024-02-23] MEDS: SODIUM CHLORIDE 0.9% 1,000 ML IV ONE (20:29)
[2024-02-23 23:19] LABS: TROPONIN I HIGH SENSITIVITY 14 ng/L (3.0-53)
[2024-02-23 23:38] LABS: *AMPHETAMINES SCREEN URINE PRESUMPTIVE POSITIVE (NEGATIVE); *BARBITURATES SCREEN URINE NEGATIVE (NEGATIVE); *BENZODIAZEPINES SCREEN URINE NEGATIVE (NEGATIVE); *COCAINE SCREEN URINE NEGATIVE (NEGATIVE)
[2024-02-23 23:39] LABS: CANNABINOID URINE SCREEN PRESUMPTIVE POSITIVE (NEGATIVE); ECSTASY MDMA SCREEN URINE NEGATIVE (NEGATIVE); METHADONE URINE SCREEN NEGATIVE (NEGATIVE); OPIATES URINE SCREEN NEGATIVE (NEGATIVE); PHENCYCLIDINE URINE SCREEN NEGATIVE (NEGATIVE)
[2024-02-23] MEDS: DIPHENHYDRAMINE 50MG/ML VIAL IV ONE (23:40)
[2024-02-23 23:48] LABS: CLARITY URINE CLEAR (CLEAR); COLOR URINE YELLOW (YELLOW); GLUCOSE URINE NEGATIVE (NEGATIVE); KETONES URINE NEGATIVE (NEGATIVE); LEUKOCYTE ESTERASE URINE NEGATIVE (NEGATIVE); NITRITE URINE NEGATIVE (NEGATIVE); OCCULT BLOOD URINE TRACE (NEGATIVE); PH URINE 6.5 (4.5-8.0); PROTEIN URINE TRACE (NEGATIVE); SPECIFIC GRAVITY URINE 1.012 (1.005-1.030); UROBILINOGEN URINE 0.2 E.U./dL (0.2-1.0)
[2024-02-24 03:24] LABS: BACTERIA URINE NONE SEEN; RBC URINE 0-2 /hpf (0-2); SQUAMOUS EPITHELIAL CELL URINE NONE SEEN /lpf (RARE/1+); WBC URINE 0-2 /hpf (0-2)
[2024-02-24] MEDS: DIPHENHYDRAMINE 50MG/ML VIAL IM PRN (10:38)
[2024-02-24 13:12] VITALS: BP 122/82; PULSE 89; RESP 18; TEMP 36.89184; O2SAT 100
== END 2024-02-24 13:51 | disposition home or self-care (01) ==
LOC: ER 17:02
DX: R44.0 Auditory hallucinations (principal); I10 Essential (primary) hypertension; F15.10 Other stimulant abuse, uncomplicated; F17.210 Nicotine dependence, cigarettes, uncomplicated; Z20.822 Contact with and (suspected) exposure to COVID-19
CPT/HCPCS: 80305; 80048; 81003; 80307; 80329; 80320; 83880; 83690; 85025; 85610; 85730; 84484; 36415; 71045; 93005; 96361; 96374; 99285; 96372; 87426; J1200 ×2; J7030; G0480